=== PATIENT | male | born 1970 | race Two or more races ===

== ENCOUNTER 2017-03-19 17:44 | Emergency (ER) | payer SELFPAY ==
[~2017-03-19] VITALS: Ht 167.6 cm; Wt 86.2 kg
--- NOTE | 2017-03-19 18:09 | EKG ---
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
--- NOTE | 2017-03-19 18:38 | PHYS DOC ---
Past Medical History Past Medical History: Hypertension Past Surgical History: No Surgical History Alcohol Use: Occasionally Drug Use: None Adult General Chief Complaint Chief Complaint: CHEST PAIN HPI HPI 46-year-old male presenting to the emergency department today with chest pain. He reports his chest pain started 30 minutes ago. He has a history of high blood pressure and history of smoking. He denies family history of heart disease , high cholesterol, or diabetes. He denies unilateral leg swelling hemoptysis or personal history of blood clotting disorders. He denies recent immobilization. Upon arrival the patient is very clear that he does not want any blood work to be taken. He demonstrates medical decision making capacity. He is willing to allow us to do a chest x-ray and EKG and nothing more. He is nonradiating and is sharp intermittent and without alleviating factors. PERC neg. Review of systems was negative for shortness of breath abdominal pain nausea vomiting or diaphoresis. All other review of systems is negative unless otherwise noted in history of present illness. ED course: 46-year-old male presenting to the emergency department today with chest pain. Upon arrival the patient is afebrile with a normal heart rate. He is well-appearing and using a cell phone at the time of my examination. Otherwise the patient is not diaphoretic. Lung sounds clear to auscultation bilaterally. Abdomen is soft and nontender. EKG obtained and reviewed by myself shows sinus rhythm with a regular rate. ST segments are congruent. Not suggestive of ACS. There is mild T-wave flattening in the inferior leads which is nonspecific. Chest x-ray reviewed by myself shows no obvious infiltrate or pneumothorax. Again the patient refuses to have blood work obtained. I explained the risks and benefits including and disability. The patient has medical decision-making capacity. AMA I informed the patient of their right to a medical screening exam and any treatment and/or stabilization that may be necessary regardless of their ability to pay. The patient appears to have intact insight, judgment, and reason. In my opinion, this patient has the capacity to make decisions. I felt that the patient had medical decision making capabilities. The patient presented with [chest pain] and I am concerned that this could be [acute coronary syndrome]. My initial plan prior to the pt expressing the desire to leave was [serial troponins and cardiac consultation]. I explained the risk of and disability to the patient in plain language which they were able to demonstrate in their own words verbal understanding. I discussed the limitations of the workup thus far included but were not limited to [no troponin or other blood work]. The pt has verbalized understanding of my concerns. I offered alternatives to the therapy including [following up with his doctor]. I recommended the pt follow up with [his pcp tomorrow]. I explained that at any time if the patient changed their mind, we are always open and would be happy to have them back. The patient refused further care and then left against medical advice. Review of Systems Review of Systems SEE ABOVE. Current Medications Current Medications Current Medications Medications (Trade) Dose Ordered Sig/Kris Start Time Stop Time Status Last Admin Dose Admin Aspirin (Children'S Aspirin) 324 mg 1X ONCE 03/19/17 18:45 03/19/17 18:46 DC 03/19/17 18:33 324 MG Allergies Allergies Allergies Coded Allergies Type Severity Reaction Last Updated Verified No Known Drug Allergies 03/19/17 No Physical Exam Physical Exam SEE ABOVE Constitutional: Well developed, well nourished, no acute distress, non-toxic appearance. [] HENT: Normocephalic, atraumatic, bilateral external ears normal, oropharynx moist, no oral exudates, nose normal. [] Eyes: PERRLA, EOMI, conjunctiva normal, no discharge. [] Neck: Normal range of motion, no tenderness, supple, no stridor. [] Cardiovascular:Heart rate regular rhythm, no murmur [] Lungs & Thorax: Bilateral breath sounds clear to auscultation [] Abdomen: Bowel sounds normal, soft, no tenderness, no masses, no pulsatile masses. [] Skin: Warm, dry, no erythema, no rash. [] Back: No tenderness, no CVA tenderness. [] Extremities: No tenderness, no cyanosis, no clubbing, ROM intact, no edema. [] Neurologic: Alert and oriented X 3, normal motor function, normal sensory function, no focal deficits noted. [] Psychologic: Affect normal, judgement normal, mood normal. [] Current Patient Data Vital Signs Vital Signs Date Time Temp Pulse Resp B/P (MAP) Pulse Ox O2 Delivery O2 Flow Rate FiO2 03/19/17 17:45 99.2 86 22 109/70 (83) 93 Room Air 99.2 EKG EKG [] Radiology/Procedures Radiology/Procedures [] Course & Med Decision Making Course & Med Decision Making Pertinent Labs and Imaging studies reviewed. (See chart for details) [] Dragon Disclaimer Dragon Disclaimer This electronic medical record was generated, in whole or in part, using a voice recognition dictation system. Departure Departure Impression: Primary Impression: Chest pain Disposition: 07 AGAINST MEDICAL ADVICE Condition: GUARDED SHABNAM OCHOA MD Mar 19, 2017 18:38
[2017-03-19] MEDS ORDERED: ASPIRIN CHEWABLE 81 MG TABLET. PO ONE (18:45)
[2017-03-19 19:00] VITALS: BP 118/79
--- NOTE | 2017-03-20 07:54 | RAD ---
Portable chest, 03/19/2017: History: Chest pain The heart size and pulmonary vascularity are normal. No pulmonary infiltrates are seen. There is no evidence of pleural fluid. IMPRESSION: No acute cardiopulmonary abnormality is detected.
== END 2017-03-19 20:05 | disposition left against medical advice (07) ==
LOC: ER 17:44
DX: R07.89 Other chest pain (principal); I10 Essential (primary) hypertension; Z87.891 Personal history of nicotine dependence
CPT/HCPCS: 71010; 93005; 99284-25